=== PATIENT | female | born 1975 | race Caucasian/White ===

== ENCOUNTER → 2016-12-05 | Outpatient (CLI) | payer OTHER ==
[~2016-12-05] MED LIST: FLONASE 50 MCG/16 GM NOSE; NORCO 5-325 TA1 EACH PO; ZYRTEC10 MG PO
== END | disposition disaster alternative care site (69) ==
LOC: GRAD 10:43
DX: R10.11 Right upper quadrant pain (principal)
CPT/HCPCS: A9537

== ENCOUNTER → 2016-12-10 | Day surgery (SDC) | payer OTHER ==
[~2016-12-10] VITALS: Ht 162.6 cm; Wt 94.6 kg
--- NOTE | ~2016-12-10 | OR ---
PATIENT'S NAME: NORBERTO PARTIDA [facility] AGE: 41 Y [address] ROOM: [place] [address] [place] [facility] [place]: 12[place]10[place] OR/Procedure Report DISCHARGE DATE: FAMILY PHYSICIAN: KIKE WATSON MD ATTENDING PHYSICIAN: Cindy Cisneros SURGEON: Cindy Cisneros MD HOG RINGER: Cait Watts PA-C DATE OF PROCEDURE: 12/10/2016 PREOPERATIVE DIAGNOSIS: Biliary dyskinesia. POSTOPERATIVE DIAGNOSIS: Biliary dyskinesia. PROCEDURE PERFORMED: Robotic-assisted laparoscopic cholecystectomy. ANESTHESIA: General endotracheal. ESTIMATED BLOOD LOSS: Minimal. SPECIMENS: Gallbladder. REASON FOR PROCEDURE: The patient is a 41-year-old female who has been having trouble with nausea and right upper quadrant pain. This is generally postprandial. An ultrasound was unremarkable. Due to persistent worsening symptoms, she had a HIDA scan that showed an ejection fraction of 87%, possibly representing a hyperdynamic gallbladder. The HIDA scan did reproduce her pain symptoms. She elected to proceed with cholecystectomy. The risks and benefits were all discussed. Findings of the procedure were uneventful. The cystic duct was normal in size. PROCEDURE IN DETAIL: The patient was taken to the operating suite and placed in the supine position. After general endotracheal anesthesia was obtained, the abdomen was prepped with ChloraPrep and sterilely draped. Marcaine with epinephrine was injected into the incision sites. A 1 cm infraumbilical incision was made. The fascia was grasped and elevated, and a Veress needle was used to obtain a pneumoperitoneum. An 8 mm bladeless robotic trocar was then passed across the abdominal wall. Three other 8 mm bladeless robotic trocars were then placed under direct visualization. The robot was docked to the trocars. The camera was then advanced through the umbilical trocar and centered on the gallbladder. Once the instruments had all been positioned, I then moved to the console. The fundus of the gallbladder was grasped and elevated. A second grasper was placed on the infundibulum. Hook cautery was used to dissect through the neck area of the gallbladder. The cystic duct and cystic artery were carefully skeletonized up to the gallbladder wall. Once the dissection was complete, the cystic duct and artery were stapled with [facility] 41 Y [address] ROOM: [place] [address] [place] [facility] [place]: 12[place]10/[place] OR/Procedure Report DISCHARGE DATE: FAMILY PHYSICIAN: KIKE WATSON MD ATTENDING PHYSICIAN: Cindy Cisneros locking clips, and they were then divided with cautery. The gallbladder was then mobilized free of the liver bed. Once fully mobilized, the gallbladder was removed from the umbilicus. We did wash out the right upper quadrant because of some spillage of bile. The robot was undocked from the trocars. Once we had completely irrigated the right upper quadrant, all the trocars were removed, and the pneumoperitoneum was evacuated. The fascia at the umbilicus was closed with a Vicryl suture. The skin incisions were closed with subcuticular Monocryl. Benzoin, Steri-Strips, and gauze dressings were applied. POSTPROCEDURE PLAN: The patient will be sent to Recovery and discharged home when awake and alert. She can resume diet and activities as tolerated. She was given a prescription for 30 [place] for pain control. I will see her back in the office in 10 days for recheck. CINDY CISNEROS MD JTM/lesliel /[id number] d: 12/10/16 1230 t: 12/10/16 1403, OPERATIVE SUMMARY
== END | disposition disaster alternative care site (69) ==
LOC: GPOC 12-07 11:00 → GSDC 12-07 11:00
PROC: 0FT44ZZ Resection of Gallbladder, Percutaneous Endoscopic Approach (ICD-10-PCS; principal; 2016-12-10)
PROC: 8E0W8CZ Robotic Assisted Procedure of Trunk Region, Via Natural or Artificial Opening Endoscopic (ICD-10-PCS; 2016-12-10)
DX: K81.1 Chronic cholecystitis (principal); Z87.891 Personal history of nicotine dependence; Z88.8 Allergy status to other drugs, medicaments and biological substances; Z98.51 Tubal ligation status; Z98.890 Other specified postprocedural states; Z79.899 Other long term (current) drug therapy
CPT/HCPCS: J1100; J1200; J1956; J2250; J2405; J3010; J7120